=== PATIENT | female | born 1995 | race Caucasian/White ===

== ENCOUNTER → 2020-01-18 | Outpatient (CLI) | payer SELFPAY ==
[2020-01-18 13:24] LABS: Mucous, Urine 0 SEEN /hpf (<or=2+); Red Blood Cells-Urine 0 SEEN /hpf (0-5); White Blood Cells 0 SEEN /hpf (0-5)
[2020-01-18 13:53] LABS: Color, Urine Yellow (Yellow); Glucose, Dipstick Normal (Normal); Ketone-Dipstick Negative (Negative); Leukocyte Esterase-Dipstick Negative /ul (Negative); Nitrite-Dipstick Negative (Negative); Occult Blood-Urine Negative /ul (Negative); Protein-Dipstick Negative (Negative); Urine Bilirubin Dipstick Negative (Negative); Urine Clarity Clear (Clear); Urine Urobilinogen Normal (Normal); Urine pH 6.5 (5.0 - 8.0)
[2020-01-18 13:58] LABS: Bacteria RARE /hpf (None Seen); Squamous Epithelial Cells - UA 0-5 SEEN /hpf (5-10)
[2020-01-20 16:08] LABS: Age Gdln ACOG Testing 21-29 (.)
[2020-01-20 16:30] LABS: HPV Reflexed? NOT INDICATED
[2020-01-20 20:07] LABS: Chlamydia By Nucleic Acid AMP Negative (Negative)
[2020-01-20 20:35] LABS: Gonococcus By Nucleic Acid AMP Negative (Negative)
== END | disposition home or self-care (01) ==
LOC: LABSPEC 13:19
PROVIDERS: Visit Provider Obstetrics & Gynecology
DX: Z34.81 Encounter for supervision of other normal pregnancy, first trimester (principal); Z11.3 Encounter for screening for infections with a predominantly sexual mode of transmission; Z12.4 Encounter for screening for malignant neoplasm of cervix
CPT/HCPCS: 81001; 87491; 87591; 88175; G0145

== ENCOUNTER → 2020-02-16 10:57 | Outpatient (CLI) | payer SELFPAY ==
[2020-02-16 13:45] LABS: Absolute Lymphocyte Count 1.59 X10^3/uL (0.83-4.51); Absolute Neutrophil Count 8.5 X10^3/uL (2.0-7.7); Basophil# 0.03 X10^3/uL; Basophil% 0.3 % (0-1); Eosinophil# 0.08 X10^3/uL; Eosinophils% 0.7 % (0-5); Hematocrit 39.1 % (37-47); Hemoglobin 12.9 g/dL (12.0-15.0); Lymphocyte # 1.59 X10^3/ul (4.0); Lymphocyte % 14.5 % (19-41); Mean Corpuscular Hgb 28.7 pg (27.0-32.0); Mean Corpuscular Volume 86.9 fL (81-99); Mean Platelet Vol. 11.1 fl (6.2-12.0); Monocyte# 0.65 X10^3/uL; Monocyte% 5.9 % (0-10); NRBC Flagged by Analyzer 0 % (0-5); Neutrophil # 8.52 X10^3/uL (2.7-7.7); Platelet Count 209 K/mm3 (150-450); RBC Distribution Width CV 12.1 % (11.6-14.6); RBC Distribution Width SD 38.7 fl (35.1-43.9); White Blood Count 10.9 K/mm3 (4.4-11.0)
[2020-02-16 13:49] LABS: Color, Urine Straw (Yellow); Glucose, Dipstick Normal (Normal); Ketone-Dipstick Negative (Negative); Leukocyte Esterase-Dipstick Negative /ul (Negative); Nitrite-Dipstick Negative (Negative); Occult Blood-Urine Negative /ul (Negative); Protein-Dipstick Negative (Negative); Specific Gravity, Urine 1.005 (1.002-1.030); Urine Bilirubin Dipstick Negative (Negative); Urine Clarity Clear (Clear); Urine Urobilinogen Normal (Normal)
[2020-02-16 14:01] LABS: Amphetamine Urine VISTA NEGATIVE (<1000 ng/mL); Barbiturate Urine VISTA NEGATIVE (< 200 ng/mL); Benzodiazepine Urine VISTA NEGATIVE (< 200 ng/mL); Cocaine Urine VISTA NEGATIVE (< 300 ng/mL); Ecstacy Urine VISTA NEGATIVE (< 500 ng/mL); Methadone Urine VISTA NEGATIVE (< 300 ng/mL); PCP Urine VISTA NEGATIVE (< 25 ng/mL); THC Urine VISTA NEGATIVE (< 50 ng/mL); Vista UDS pH Range 6
[2020-02-16 14:40] LABS: HIV - WCH Non-Reactive (Nonreactive); Hepatitis B Surface Antigen Non-Reactive (Nonreactive); Hepatitis C Antibody Non-Reactive (Nonreactive); Rubella IgG Reactive (Nonreactive)
[2020-02-23 01:20] LABS: Prenatal RPR NONREACTIVE (NONREACTIVE)
== END ==
PROVIDERS: Visit Provider Student in an Organized Health Care Education/Training Program
DX: Z34.82 Encounter for supervision of other normal pregnancy, second trimester (principal)
CPT/HCPCS: 36415; 80307; 81002; 85025; 86703; 86762; 86803; 87086; 87340

== ENCOUNTER → 2020-05-08 10:19 | Outpatient (CLI) | payer SELFPAY ==
[2020-05-08 11:07] LABS: Hemoglobin 12.3 g/dL (12.0-15.0); Mean Corp Hgb Conc 33.2 g/dL (32-36); Mean Corpuscular Hgb 29.6 pg (27.0-32.0); Mean Corpuscular Volume 89.2 fL (81-99); Mean Platelet Vol. 10.6 fl (6.2-12.0); Platelet Count 188 K/mm3 (150-450); RBC Distribution Width SD 42.4 fl (35.1-43.9); Red Blood Count 4.15 M/mm3 (4.2-5.4); White Blood Count 9.8 K/mm3 (4.4-11.0)
[2020-05-08 11:23] LABS: Glucose Challenge Gest 1H 50g 118 mg/dL (70-140)
== END ==
PROVIDERS: Visit Provider Student in an Organized Health Care Education/Training Program
DX: Z34.82 Encounter for supervision of other normal pregnancy, second trimester (principal)
CPT/HCPCS: 36415; 82950; 85027

== ENCOUNTER → 2020-07-25 11:24 | Outpatient (CLI) | payer SELFPAY | PROVIDERS: Visit Provider Student in an Organized Health Care Education/Training Program | DX: Z36.85 Encounter for antenatal screening for Streptococcus B (principal) | CPT/HCPCS: 87081 ==

== ENCOUNTER → 2020-08-21 | Outpatient (CLI) | payer SELFPAY | END | disposition home or self-care (01) | LOC: LABSPEC 15:36 | PROVIDERS: Visit Provider Student in an Organized Health Care Education/Training Program | DX: Z34.83 Encounter for supervision of other normal pregnancy, third trimester (principal); Z36.85 Encounter for antenatal screening for Streptococcus B | CPT/HCPCS: 87081 ==

== ENCOUNTER 2020-08-29 07:00 | Inpatient (IN) | payer SELFPAY, OTHER ==
[2020-08-29] VITALS (47 sets, daily range): BP systolic 106–143; BP diastolic 55–74; PULSE 58–98; TEMP 36–37.4; O2SAT 96–100; BMI 30.8
[2020-08-29] MEDS: Lactated Ringers 1,000 ML 50 ML IV (07:30)
[2020-08-29 08:06] LABS: Absolute Lymphocyte Count 1.87 X10^3/uL (0.83-4.51); Absolute Neutrophil Count 6.1 X10^3/uL (2.0-7.7); Basophil# 0.03 X10^3/uL; Basophil% 0.3 % (0-1); Eosinophil# 0.06 X10^3/uL; Eosinophils% 0.7 % (0-5); Hematocrit 37.1 % (37-47); Hemoglobin 12.7 g/dL (12.0-15.0); Lymphocyte # 1.87 X10^3/ul (0.83-4.51); Mean Corp Hgb Conc 34.2 g/dL (32-36); Mean Corpuscular Hgb 30.2 pg (27.0-32.0); Mean Corpuscular Volume 88.3 fL (81-99); Mean Platelet Vol. 11.9 fl (6.2-12.0); Monocyte# 0.77 X10^3/uL; Monocyte% 8.7 % (0-10); NRBC Flagged by Analyzer 0 % (0-5); Neutrophil # 6.11 X10^3/uL (2.7-7.7); Neutrophil % 68.7 % (47-70); Platelet Count 145 K/mm3 (150-450); RBC Distribution Width CV 13.2 % (11.6-14.6); RBC Distribution Width SD 42.1 fl (35.1-43.9); White Blood Count 8.9 K/mm3 (4.4-11.0)
[2020-08-29] MEDS: miSOPROStol 25 MCG TABLET VAGINAL (08:19)
--- NOTE | 2020-08-29 09:10 | HP.PCM.OB_ITS ---
HPI - General General Date of Admission: 08/29/20 HPI Narrative ANTHONY YOO, is a 25 F 1 who presents for scheduled induction of labor. Maternal Data Information VERA Calculator Estimated Delivery Date Method Current WG Current Estimate 08/20/20 Manual 41w 2d Final VERA: 08/20/20 Final VERA Source: US <20 weeks Gestational age: 41 2/7 PFSH no medical history Home Medications [place] 3-6-9 08/29/20 [History Last Taken 08/28/20 17:00] wikosblaf-xmtebzt-fjqqa acid 08/29/20 [History Last Taken 08/28/20 17:00] no.144-folic acid [] 1 tab PO DAILY 08/29/20 [History Last Taken 08/28/20 17:00 1 tablet] Allergy/AdvReac Type Severity Reaction Status Date / Time No Known Allergies Allergy Verified 08/29/20 07:43 no significant family history no surgical history Social History adopted: No household members: spouse housing: house service: No current occupational status: unemployed 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 current occupational exposures/hazards: No pets and animals: Yes (Dog) history of recent travel: No sexually active: Yes do you think of yourself as: straight/heterosexual current gender identity: female Smoking Status: Former smoker History 1 Elective abortions Hx Para 0 Spontaneous abortions Hx # Term Pregnancies Ectopic pregnancies Hx # Pregnancies Multiple births # of living children Visit Details Expected Delivery Route/Plan IOL, anticipate Plans Misoprostol NST FHR Rate Baby A Baseline: 135 Variability:: Moderate Accelerations:: 15 x 15 Decelerations:: None NST Reactive:: Yes FHR Category:: Category I Uterine Activity:: 04/22 Vital Signs Vital Signs Vital Signs: 08/29/20 08:10 08/29/20 08:12 08/29/20 08:13 Temperature 99.1 F Temperature Source Temporal Pulse Rate 80 82 Blood Pressure 110/70 BP Systolic 110 BP Diastolic 70 Pulse Ox 97 08/29/20 10:48 08/29/20 10:49 08/29/20 11:45 Temperature 96.8 F L 98.1 F Temperature Source Temporal Temporal Pulse Rate 64 71 Blood Pressure 118/68 120/74 BP Systolic 118 120 BP Diastolic 68 74 Pulse Ox 08/29/20 11:46 08/29/20 13:26 08/29/20 13:27 Temperature 97.9 F Temperature Source Pulse Rate 76 71 78 Blood Pressure 113/68 BP Systolic 113 BP Diastolic 68 Pulse Ox 99 97 08/29/20 14:51 08/29/20 14:52 08/29/20 15:32 Temperature 98.4 F Temperature Source Temporal Pulse Rate 76 64 Blood Pressure 118/72 BP Systolic 118 BP Diastolic 72 Pulse Ox 99 98 08/29/20 15:37 08/29/20 15:42 08/29/20 15:47 Temperature Temperature Source Pulse Rate 65 68 66 Blood Pressure BP Systolic BP Diastolic Pulse Ox 98 97 97 08/29/20 15:52 08/29/20 15:57 08/29/20 16:02 Temperature Temperature Source Pulse Rate 61 59 L 59 L Blood Pressure BP Systolic BP Diastolic Pulse Ox 97 97 97 08/29/20 16:05 08/29/20 16:07 08/29/20 16:12 Temperature Temperature Source Pulse Rate 62 59 L 63 Blood Pressure 110/64 BP Systolic 110 BP Diastolic 64 Pulse Ox 98 98 08/29/20 16:17 08/29/20 16:22 08/29/20 16:27 Temperature Temperature Source Pulse Rate 62 58 L 59 L Blood Pressure BP Systolic BP Diastolic Pulse Ox 98 98 98 08/29/20 16:32 08/29/20 16:37 08/29/20 16:42 Temperature Temperature Source Pulse Rate 60 60 63 Blood Pressure BP Systolic BP Diastolic Pulse Ox 99 99 99 08/29/20 16:52 08/29/20 16:57 08/29/20 17:02 Temperature Temperature Source Pulse Rate 86 69 78 Blood Pressure BP Systolic BP Diastolic Pulse Ox 100 100 100 08/29/20 17:08 08/29/20 17:13 08/29/20 17:18 Temperature Temperature Source Pulse Rate 82 76 66 Blood Pressure BP Systolic BP Diastolic Pulse Ox 100 99 100 08/29/20 17:23 08/29/20 17:28 08/29/20 17:33 Temperature Temperature Source Pulse Rate 66 72 76 Blood Pressure BP Systolic BP Diastolic Pulse Ox 100 100 100 08/29/20 17:38 08/29/20 18:06 08/29/20 18:07 Temperature 98.6 F Temperature Source Temporal Pulse Rate 98 76 Blood Pressure 122/70 H BP Systolic 122 BP Diastolic 70 Pulse Ox 100 98 08/29/20 19:23 08/29/20 19:24 08/29/20 20:28 Temperature 99.3 F H 99.1 F Temperature Source Temporal Temporal Pulse Rate 67 82 Blood Pressure 120/70 111/68 BP Systolic 120 111 BP Diastolic 70 68 Pulse Ox 96 Physical Exam Const alert, oriented x3 and no apparent distress HEENT normocephalic Resp normal respiratory effort and normal air movement Cardio regular rate, regular rhythm, S1 normal heart sound and S2 normal heart sound GI soft to palpation, non-tender and non-distended Inspection: gravid Manual OB Exam: deferred Extremity no calf tenderness and no pedal edema Labs Labs Labs: Blood Type A POSITIVE Antibody Screen NEGATIVE Hct 37.1 % (37-47) Hgb 12.7 g/dL (12.0-15.0) Rubella IgG Antibody Reactive (Nonreactive) Hep Bs Antigen Non-Reactive (Nonreactive) Neisseria gonorrhoeae DNA (RITA) Negative (Negative) HIV 1&2 Antibody Non-Reactive (Nonreactive) Glucose 1 Hr 50 gm 118 mg/dL (70-140) Assessment & Plan (1) 41 weeks gestation of : PLAN: Misoprostol IOL
[2020-08-29] MEDS: Oxytocin 30 units/NS 500 ml 30 UNITS/500 ML IV.SOLN IV (12:22)
--- NOTE | 2020-08-29 13:07 | PN.OBGYN_ITS ---
Subjective Subjective Contractions are mild to moderate. Objective Data Objective Data Vital Signs: Vital Signs Temp Pulse BP Pulse Ox 98.1 F 76 120/74 99 08/29/20 11:45 08/29/20 11:46 08/29/20 11:45 08/29/20 11:46 Weight: 84 kg Body Mass Index (BMI) 30.8 Intake & Output: Intake and Output for Last 24 Hours 08/27/20 08/28/20 08/29/20 23:59 23:59 23:59 Intake Total 1.23 / 1.23 Balance 1.23 / 1.23 Lab / Micro Data Result Diagrams: 08/29/20 07:30 Labs: Laboratory Results - last 24 hr 08/29/20 08/29/20 07:30 07:30 WBC 8.9 RBC 4.20 Hgb 12.7 Hct 37.1 MCV 88.3 MCH 30.2 MCHC 34.2 RDW Std Deviation 42.1 RDW Coeff of Matthew 13.2 Plt Count 145 L MPV 11.9 Immature Gran % (Auto) 0.600 Neut % (Auto) 68.7 Lymph % (Auto) 21.0 [place] % (Auto) 8.7 Eos % (Auto) 0.7 Baso % (Auto) 0.3 Absolute Neuts (auto) 6.1 Absolute Lymphs (auto) 1.87 Nucleated RBC % 0 Blood Type A POSITIVE Antibody Screen NEGATIVE Micro: Microbiology 08/29/20 08:15 Interface Orders SARS-CoV-2 Antigen (Rapid) - Final Physical Exam Const alert, oriented x3 and no apparent distress Manual OB Exam: dilated 1, effaced 50, station -3 and other moderate and m idposition NST FHR Rate Baby A Baseline: 135 Variability:: Moderate Accelerations:: 15 x 15 Decelerations:: None NST Reactive:: Yes FHR Category:: Category I Uterine Activity:: 3-4/10 min Assessment & Plan (1) 41 weeks gestation of : PLAN: Continue pitocin as tolerated by mother and fetus.
[2020-08-29] MEDS: 0.9% Normal Saline Single 100 ML IV.SOLN. INTRA-UTER (19:17)
[2020-08-30] VITALS (74 sets, daily range): BP systolic 81–135; BP diastolic 45–88; PULSE 55–102; RESP 16–18; TEMP 36.5–37.7; O2SAT 95–100
[2020-08-30] MEDS: 0.9% Saline Lock 10 ML Syringe IV ×2 (00:43→20:06)
[2020-08-30] MEDS: Lactated Ringers 1,000 ML 200 ML IV ×3 (04:17→15:21)
[2020-08-30] MEDS: Ondansetron 4 MG/2 ML Vial IV (07:30)
[2020-08-30] MEDS: Lactated Ringers 500 ML 999 ML IV ×2 (11:20→12:35)
[2020-08-30] MEDS: fentaNYL-bupivacaine (epidural) 100 ML BAG EPIDURAL ×2 (11:58→16:04)
--- NOTE | 2020-08-30 17:33 | PCM.PN.OB ---
Subjective Subjective 41+ week intrauterine gestation patient has progressed to 5 cm/90/0 station. She has remained at this dilation and station for approximately 12 hours despite adequate contractions noted with an intrauterine pressure catheter monitor in place. Pitocin as high as 20 mIU per minute. Comfortable with epidural. She was ruptured approximately 1130 last evening and at that time was 4 to 5 cm. Given arrest of descent and arrest of dilation will proceed with primary section after discussion with the patient and her . They have also been counseled regarding the risk and indications of this procedure including the possibility of bleeding, infection, and injury to surrounding structures such as bowel bladder. All questions were answered. No fever and heart tones reassuring. Objective Data Objective Data Vital Signs: Vital Signs Temp Pulse BP Pulse Ox 99.7 F H 80 105/61 100 08/30/20 17:19 08/30/20 17:18 08/30/20 17:16 08/30/20 17:18 Weight: 185 lb 3.013 oz Body Mass Index (BMI) 30.8 Intake & Output: Intake and Output for Last 24 Hours 08/28/20 08/29/20 08/30/20 23:59 23:59 23:59 Intake Total 2710.17 / 2710.17 3436.94 / 3436.94 Output Total 2900 / 2900 1974 / 1974 Balance -189.83 / -189.83 1461.94 / 1461.94 Lab / Micro Data Result Diagrams: 08/29/20 07:30 Micro: Microbiology 08/29/20 08:15 Interface Orders SARS-CoV-2 Antigen (Rapid) - Final
--- NOTE | 2020-08-30 17:39 | EX.PCM.OBRPT ---
Maternal Data Information VERA Calculator Estimated Delivery Date Method Current WG Current Estimate 08/20/20 Manual 41w 3d Final VERA: 08/20/20 Gestational age: 41 weeks 3 days Details Operative Information Date of Procedure: 08/30/20 Pre-Operative Diagnosis: Postdate Intrauterine , Failure to Progress Post-Operative Diagnosis: Postdate Intrauterine , Failure to Progress Indications for : Failure to Progress and Arrrest of Descent Classification: FELIPE Procedure Type: low transverse unit assembler #1: Carson Garcia Type of Anesthesia: Epidural Anesthesiologist: Chay Zhang Antibiotic Given: Ancef 2 grams IV x1 Drain: Uriostegui to straight drain Estimated Blood Loss: 500 cc Fluids Replaced: Crystalloid Findings Description of Procedure: Surgeon: Reid Kwong MD, FACOG Indication: This is a 25-year-old who presented at 41+ weeks gestation for postdate induction. She progressed to 5 cm but despite rupture of membranes, adequate contractions noted by an intrauterine pressure catheter, and Pitocin up to 20mIU/min, she failed to progress past 5 cm for more than 12 hours. care has otherwise been uneventful. The patient has been counseled regarding the risk and indications of this procedure including the possibility of bleeding infection and injury to surrounding structures such as bowel bladder. All questions were answered. Procedure: Patient was taken to the operating room where after epidural catheter was redosed, the patient was prepped and draped in usual sterile fashion; a Uriostegui catheter had been previously placed. The abdomen was entered through a Pfannenstiel incision and peritoneum was entered bluntly. After developing a bladder flap on the lower uterine segment a low transverse incision was made on the uterus and head was easily delivered onto the operative field the nose mouth and oropharynx were bulb suctioned. Subsequently a viable male was born with Apgars of 8/9. The was noted to cry move all extremities vigorously on the operative field. The umbilical cord was doubly clamped and ligated and handed to the nursery personnel who were present for the delivery. Placenta was delivered and noted to be 3 vessels and normal. Uterus was exteriorized and remaining placental tissue was removed. The uterus was then closed in 2 layers first with running locked 0 Vicryl suture followed by a second imbricating layer with 0 Vicryl suture. 0 Vicryl suture was then used in a horizontal mattress interrupted fashion to affect final hemostasis of the uterine incision line. Normal fallopian tubes and ovaries were visualized and the uterus was returned to the pelvis. Hemostasis was noted and rectus abdominis muscles were reapproximated in the midline with interrupted Number 0 Vicryl suture in a horizontal mattress fashion. Fascia was closed with running Number 1 PDS Strata fix suture. Subcutaneous tissue was irrigated with copious amounts of saline solution and then closed with running 3-0 Vicryl suture. Skin was closed with 4-0 monocryl suture in a running subcuticular fashion. Steri strips and a Mepilex dressing were placed across the incision. The patient tolerated the procedure well and was taken to the recovery room in satisfactory condition. Sponge, needle, and instrument counts were all reportedly correct. EBL was less than 500 cc. Ancef 2 gms IV was given prior to the procedure. Amniotic Membrane Rupture Type: Artificial Amniotic Fluid Description: Clear Placenta Disposition: [facility] Cord Vessel Description: 3 Vessels Cord Entanglement: None Infant A Gender: Male (1 minute): 8 (5 minute): 9 Complications Risks of Surgery Discussed w/Patient: Bleeding, Infection and Injury to surrounding structure(s) including bowel and bladder Complications: None
--- NOTE | 2020-08-30 17:48 | PCM.DC ---
Discharge Instructions Diet Discharge Diet: No restrictions Activity Discharge Activity: May Not Drive (for 2 weeks), May not drive while taking narcotic pain medications., May Shower and May Take a Tub Bath (in 7 days) May resume sexual activity in: 4-6 weeks Lifting Restrictions: 20 pounds Dressing / Incision Call your doctor if your incision/area has: Continuous Slow Oozing, Sudden Increased Bleeding, Increased Pain/ Swelling, Increased Redness and Foul Smelling Discharge Call your doctor if you observe: Fever of 101 or Higher, Inability to urinate, Inability to have a bowel movement and Using more than one pad per hour Remove Dressing in: 1 week Additional Dressing/Incision Instructions:: Leave underlying steri-strips in place until your post op visit in about 2 weeks Follow Up Care Please Follow Up With: Delmy Ham DO When: Call [phone] for appointment to be seen in 2 weeks. Test Results: Test results from this visit will be discussed in further detail at your follow-up appointment, if applicable. Discharge Plan Admission Admit Date/Time: 08/29/20 07:00 Primary Reason for Your Visit: Delivery Attending Provider: Delmy Ham Primary Care Provider: Care Physician,Irma Primary Discharge Orders/Prescriptions Prescriptions: New oxycodone 5 mg capsule 5 mg PO Q6H PRN (Reason: pain) 7 Days Qty: 14 RF: 0 docusate sodium 100 mg tablet 100 mg PO BID PRN (Reason: constipation) Qty: 60 RF: 1 Continued 400 mcg Tablet,Chewable 1 tab PO DAILY RF: 0 kgxciikrn-zcrrmkd-kpwgv acid RF: 0 [place] 3-6-9 RF: 0 Referrals / Follow Up: Care Physician,No Primary [Primary Care Provider] - Disposition Disposition (needs filled in before D/C Order can be placed): Home, self care
[2020-08-30] MEDS: Sodium Citrate/Citric Acid 30 ML UDC PO (17:56)
[2020-08-30] MEDS: Cefazolin 2 GM in 0.9% Normal Saline 100 ML IV (18:06)
--- NOTE | 2020-08-30 18:30 | CPS ---
Rn was in room and took IS to do with the patient.
[2020-08-30] MEDS: Oxytocin 30 units/NS 500 ml 30 UNITS/500 ML IV.SOLN 167 UNITS IV (19:50)
[2020-08-30] MEDS: Ketorolac 30 MG/ML Syringe IV (20:06)
[2020-08-30] MEDS: Acetaminophen 500 MG Tablet 1000 MG PO (20:17)
--- NOTE | 2020-08-30 21:30 | NURSING ---
Epidural catheter removed, blue tip intact. Pt tolerated well.
[2020-08-30] MEDS: Lactated Ringers 1,000 ML 100 ML IV (22:41)
[2020-08-31] VITALS (7 sets, daily range): BP systolic 94–107; BP diastolic 42–68; PULSE 62–88; RESP 16–18; TEMP 36.2–36.7; O2SAT 95–98
[2020-08-31] MEDS: Acetaminophen 500 MG Tablet 1000 MG PO ×4 (01:49→20:14)
[2020-08-31] MEDS: Ketorolac 30 MG/ML Syringe IV ×3 (01:49→14:15)
[2020-08-31] MEDS: Cefazolin 1 GM/50 ML BAG IV ×2 (01:49→10:15)
[2020-08-31 05:47] LABS: Hematocrit 32.8 % (37-47); Hemoglobin 10.8 g/dL (12.0-15.0); Mean Corp Hgb Conc 32.9 g/dL (32-36); Mean Corpuscular Hgb 29.9 pg (27.0-32.0); Mean Corpuscular Volume 90.9 fL (81-99); Mean Platelet Vol. 11.5 fl (6.2-12.0); Platelet Count 134 K/mm3 (150-450); RBC Distribution Width CV 13.2 % (11.6-14.6); RBC Distribution Width SD 43.2 fl (35.1-43.9); Red Blood Count 3.61 M/mm3 (4.2-5.4); White Blood Count 18.1 K/mm3 (4.4-11.0)
[2020-08-31] MEDS: 0.9% Saline Lock 10 ML Syringe IV ×3 (08:22→14:16)
[2020-08-31] MEDS: Senna/Docusate Sodium 1 Tablet PO (08:22)
--- NOTE | 2020-08-31 09:22 | PCM.PN.OB ---
Subjective Subjective Patient without complaints. Tolerating diet well. Denies flatus. Pain well controlled. Objective Data Objective Data Vital Signs: Vital Signs Temp Pulse Resp BP Pulse Ox 97.7 F L 68 18 94/42 L 98 08/31/20 03:26 08/31/20 05:30 08/31/20 05:30 08/31/20 03:26 08/31/20 05:30 Oxygen Delivery Method Room Air Weight: 185 lb 3.013 oz Body Mass Index (BMI) 30.8 Intake & Output: Intake and Output for Last 24 Hours 08/29/20 08/30/20 08/31/20 23:59 23:59 23:59 Intake Total 2710.17 / 2710.17 4720.11 / 4720.11 1031.67 / 1031.67 Output Total 2900 / 2900 5275 / 5275 900 / 900 Balance -189.83 / -189.83 -554.89 / -554.89 131.67 / 131.67 Lab / Micro Data Result Diagrams: 08/31/20 05:30 Labs: Laboratory Results - last 24 hr 08/31/20 05:30 WBC 18.1 H RBC 3.61 L Hgb 10.8 L Hct 32.8 L MCV 90.9 MCH 29.9 MCHC 32.9 RDW Std Deviation 43.2 RDW Coeff of [place] 13.2 Plt Count 134 L MPV 11.5 Micro: Microbiology 08/29/20 08:15 Interface Orders SARS-CoV-2 Antigen (Rapid) - Final Assessment & Plan (1) 41 weeks gestation of : PLAN: Doing well postoperative day #1 status post primary section for failure to progress. Continuing present care.
[2020-08-31] MEDS: Ibuprofen 600 MG Tablet PO (20:13)
[2020-09-01 02:00] VITALS: BP 109/72; PULSE 71; RESP 16; TEMP 36.5
[2020-09-01] MEDS: Ibuprofen 600 MG Tablet PO ×2 (02:47→10:19)
[2020-09-01] MEDS: Acetaminophen 500 MG Tablet 1000 MG PO ×2 (02:47→09:13)
--- NOTE | 2020-09-01 04:13 | PCM.DC.SUM ---
Providers Date of Admission: 08/29/20 Primary Care Physician: No Primary Care Phys Reason For Visit: C SECTION Diagnosis Discharge Diagnosis (1) 41 weeks gestation of : Status: Acute Code(s): Z3A.41 - 41 weeks gestation of Medications at Discharge Home Medications [place] 3-6-9 08/29/20 1 tab PO DAILY 08/29/20 rdvpqljti-ctqryxh-loere acid 08/29/20 docusate sodium 100 mg PO BID PRN #60 tab 08/30/20 oxycodone 5 mg PO Q6H PRN 7 Days #14 cap 08/30/20 Hospital Course Operations section Procedures None Summary of Care Provided Hospital Course: 25-year-old 1 para 0 admitted at 41-1/7 weeks gestational age for scheduled induction of labor. She reached 5cm dilation but did not progress further despite more than 12 hours on pitocin following rupture of membranes . She underwent a primary low transverse section on hospital day #2 that was uncomplicated. Her postop course was unremarkable. She was discharged to home on post op day #2. Physical Exam Narrative Pain is controlled. OOB, ambulating, voiding w/o difficulty, and passing flatus. She is . Denies heavy lochia. Const alert, oriented x3 and no apparent distress Resp normal respiratory effort, normal air movement and clear to auscultation bilaterally Cardio regular rate, regular rhythm, S1 normal heart sound and S2 normal heart sound GI normal to inspection, nondistended, normoactive bowel sounds, soft to palpation, non-tender and non-distended Manual OB Exam: other lochia scant Uterus Palpation: uterus fundus firm Extremity no calf tenderness ABG / Lab / Microbiology Data Result Diagrams: 08/31/20 05:30 Laboratory: Laboratory Results - last 24 hr 08/31/20 05:30 WBC 18.1 H RBC 3.61 L Hgb 10.8 L Hct 32.8 L MCV 90.9 MCH 29.9 MCHC 32.9 RDW Std Deviation 43.2 RDW Coeff of Matthew 13.2 Plt Count 134 L MPV 11.5 Microbiology: Microbiology 08/29/20 08:15 Interface Orders SARS-CoV-2 Antigen (Rapid) - Final D/C Instructions Discharge Diet: No restrictions Discharge Activity: May Not Drive (for 2 weeks), May not drive while taking narcotic pain medications., May Shower and May Take a Tub Bath (in 7 days) May resume sexual activity in: 4-6 weeks Call your doctor if your incision/area has: Continuous Slow Oozing, Sudden Increased Bleeding, Increased Pain/ Swelling, Increased Redness and Foul Smelling Discharge Call your doctor if you observe: Fever of 101 or Higher, Inability to urinate, Inability to have a bowel movement and Using more than one pad per hour Additional Dressing/Incision Instructions: Leave underlying steri-strips in place until your post op visit in about 2 weeks Please Follow Up With: Delmy Ham DO When: Call [phone] for appointment to be seen in 2 weeks. Meaningful Use Info Meaningful Use Diagnoses (Choose all that apply): None applicable Discharge Plan Admission Admit Date/Time: 08/29/20 07:00 Primary Reason for Your Visit: Delivery Attending Provider: Reid Kwong Primary Care Provider: Care Physician,No Primary Instructions Patient Instructions: After a Discharge Orders/Prescriptions Prescriptions: New oxycodone 5 mg capsule 5 mg PO Q6H PRN (Reason: pain) 7 Days Qty: 14 RF: 0 docusate sodium 100 mg tablet 100 mg PO BID PRN (Reason: constipation) Qty: 60 RF: 1 Continued 400 mcg Tablet,Chewable 1 tab PO DAILY RF: 0 ywekfpkdy-isueeco-gvxcw acid RF: 0 [place] 3-6-9 RF: 0 Disposition Disposition (needs filled in before D/C Order can be placed): Home, self care
[2020-09-01] MEDS: Senna/Docusate Sodium 1 Tablet PO (09:15)
[2020-09-01 09:52] VITALS: BP 104/61; PULSE 68; RESP 18; TEMP 36.5
== END 2020-09-01 11:30 | disposition home or self-care (01) | DRG 788 ==
PROVIDERS: Student in an Organized Health Care Education/Training Program; Admitting Provider Obstetrics & Gynecology; Visit Provider Obstetrics & Gynecology
DX: O62.2 Other uterine inertia (principal); O48.0 Post-term pregnancy; Z37.0 Single live birth; Z3A.41 41 weeks gestation of pregnancy; Z87.891 Personal history of nicotine dependence
CPT/HCPCS: 59025; 59050; 85025; 85027; 86850; 86900; 86901; 87426; 99218; J7120; A4216; G0378; J2405

== ENCOUNTER → 2021-09-10 | Outpatient (CLI) | payer OTHER, SELFPAY ==
[2021-09-10 13:43] LABS: Progesterone Level 0.33 ng/mL (See Comment)
[2021-09-10 13:52] LABS: Estradiol 54.4 pg/mL; Follicle Stimulating Hormone 7.1 mIU/mL; Luteinizing Hormone 7.8 mIU/mL; Prolactin 6.1 ng/mL; T4 Free Direct 0.97 ng/dL (0.76-1.46); Thyroid Stim Hormone (TSH) 2.24 uIU/mL (0.358-3.74)
[2021-09-14 07:35] LABS: Testosterone Free 1.8 pg/mL (0.0-4.2)
== END | disposition home or self-care (01) ==
PROVIDERS: Visit Provider Student in an Organized Health Care Education/Training Program
DX: N92.6 Irregular menstruation, unspecified (principal)
CPT/HCPCS: 36415; 82670; 83001; 83002; 84144; 84146; 84402; 84439; 84443

== ENCOUNTER → 2022-02-19 | Outpatient (CLI) | payer OTHER, SELFPAY ==
[2022-02-19 11:56] LABS: hCG Titer Quant., Serum 20 mIU/mL (1-3)
== END | disposition home or self-care (01) ==
LOC: WOBLAB 10:39
PROVIDERS: Visit Provider Obstetrics & Gynecology
DX: O03.9 Complete or unspecified spontaneous abortion without complication (principal)
CPT/HCPCS: 36415; 84702

== ENCOUNTER 2022-02-28 10:26 | Outpatient (CLI) | payer OTHER, SELFPAY ==
[2022-02-28 11:40] LABS: hCG Titer Quant., Serum 8 mIU/mL (1-3)
== END 2022-02-28 23:59 | disposition home or self-care (01) ==
LOC: WOBLAB 10:27
PROVIDERS: Visit Provider Obstetrics & Gynecology
DX: O03.9 Complete or unspecified spontaneous abortion without complication (principal)
CPT/HCPCS: 36415; 84702

== ENCOUNTER → 2022-07-01 | Outpatient (CLI) | payer OTHER, SELFPAY ==
[2022-07-01 15:27] LABS: Absolute Lymphocyte Count 1.32 X10^3/uL (0.83-4.51); Absolute Neutrophil Count 4.4 X10^3/uL (2.0-7.7); Basophil# 0.02 X10^3/uL; Basophil% 0.3 % (0-1); Eosinophil# 0.11 X10^3/uL; Eosinophils% 1.7 % (0-5); Hematocrit 38.4 % (37-47); Hemoglobin 12.8 g/dL (12.0-15.0); Lymphocyte # 1.32 X10^3/ul (0.83-4.51); Lymphocyte % 20.8 % (19-41); Mean Corp Hgb Conc 33.3 g/dL (32-36); Mean Corpuscular Hgb 29.6 pg (27.0-32.0); Mean Corpuscular Volume 88.7 fL (81-99); Mean Platelet Vol. 10.6 fl (6.2-12.0); Monocyte# 0.52 X10^3/uL; Monocyte% 8.2 % (0-10); NRBC Flagged by Analyzer 0 % (0-5); Neutrophil # 4.35 X10^3/uL (2.7-7.7); Neutrophil % 68.5 % (47-70); Platelet Count 219 K/mm3 (150-450); RBC Distribution Width CV 12.4 % (11.6-14.6); RBC Distribution Width SD 40.6 fl (35.1-43.9); Red Blood Count 4.33 M/mm3 (4.2-5.4); White Blood Count 6.4 K/mm3 (4.4-11.0)
[2022-07-01 15:31] LABS: HIV - WCH Non-Reactive (Nonreactive); Hepatitis B Surface Antigen Non-Reactive (Nonreactive); Hepatitis C Antibody Non-Reactive (Nonreactive); Rubella IgG Reactive (Nonreactive); Syphilis Antibodies Non-reactive
[2022-07-03 13:06] LABS: V-Zoster IgG (Immunity) < 135 index (Immune >165)
[2022-07-08 22:17] LABS: HPV Reflexed? NOT INDICATED
== END | disposition home or self-care (01) ==
LOC: WOBLAB 14:05
PROVIDERS: Visit Provider Student in an Organized Health Care Education/Training Program
DX: N91.2 Amenorrhea, unspecified (principal); Z12.4 Encounter for screening for malignant neoplasm of cervix
CPT/HCPCS: 36415; 85025; 86703; 86762; 86780; 86787; 86803; 87086; 87088; 87340; 88175; G0145

== ENCOUNTER → 2022-09-24 | Outpatient (CLI) | payer OTHER, SELFPAY ==
[2022-09-24 10:21] LABS: Absolute Lymphocyte Count 1.46 X10^3/uL (0.83-4.51); Basophil# 0.03 X10^3/uL; Basophil% 0.4 % (0-1); Eosinophil# 0.13 X10^3/uL; Eosinophils% 1.6 % (0-5); Hematocrit 36.8 % (37-47); Hemoglobin 12.2 g/dL (12.0-15.0); Lymphocyte # 1.46 X10^3/ul (0.83-4.51); Lymphocyte % 17.8 % (19-41); Mean Corp Hgb Conc 33.2 g/dL (32-36); Mean Corpuscular Hgb 30.3 pg (27.0-32.0); Mean Corpuscular Volume 91.5 fL (81-99); Mean Platelet Vol. 10.5 fl (6.2-12.0); Monocyte# 0.51 X10^3/uL; Monocyte% 6.2 % (0-10); NRBC Flagged by Analyzer 0 % (0-5); Neutrophil # 5.96 X10^3/uL (2.7-7.7); Neutrophil % 72.7 % (47-70); Platelet Count 171 K/mm3 (150-450); RBC Distribution Width CV 13.1 % (11.6-14.6); RBC Distribution Width SD 43.7 fl (35.1-43.9); Red Blood Count 4.02 M/mm3 (4.2-5.4); White Blood Count 8.2 K/mm3 (4.4-11.0)
[2022-09-24 10:29] LABS: Glucose Challenge Gest 1H 50g 125 mg/dL (70-140)
[2022-09-24 10:59] LABS: Syphilis Antibodies Non-reactive
== END | disposition home or self-care (01) ==
PROVIDERS: Visit Provider Student in an Organized Health Care Education/Training Program
DX: Z34.82 Encounter for supervision of other normal pregnancy, second trimester (principal)
CPT/HCPCS: 36415; 82950; 85025; 86780

== ENCOUNTER → 2022-12-10 | Outpatient (CLI) | payer OTHER, SELFPAY ==
[2022-12-10 09:49] LABS: Hematocrit 38.8 % (37-47); Hemoglobin 13.4 g/dL (12.0-15.0); Mean Corp Hgb Conc 34.5 g/dL (32-36); Mean Corpuscular Hgb 30.9 pg (27.0-32.0); Mean Corpuscular Volume 89.6 fL (81-99); Mean Platelet Vol. 10.4 fl (6.2-12.0); Platelet Count 166 K/mm3 (150-450); RBC Distribution Width SD 42.5 fl (35.1-43.9); Red Blood Count 4.33 M/mm3 (4.2-5.4); White Blood Count 10.1 K/mm3 (4.4-11.0)
== END | disposition home or self-care (01) ==
LOC: WOBLAB 09:37
PROVIDERS: Visit Provider Student in an Organized Health Care Education/Training Program
DX: Z34.83 Encounter for supervision of other normal pregnancy, third trimester (principal)
CPT/HCPCS: 36415; 85027; 87081

== ENCOUNTER 2022-12-29 12:35 | Inpatient (IN) | payer SELFPAY, OTHER ==
[2022-12-29] VITALS (17 sets, daily range): BP systolic 93–124; BP diastolic 53–76; PULSE 69–85; TEMP 36.1–36.8; O2SAT 96–98; BMI 29.7
[2022-12-29] MEDS: Lactated Ringers 1,000 ML 50 ML IV (13:35)
[2022-12-29 13:53] LABS: Absolute Lymphocyte Count 2.04 X10^3/uL (0.83-4.51); Basophil# 0.04 X10^3/uL; Basophil% 0.4 % (0-1); Eosinophil# 0.08 X10^3/uL; Eosinophils% 0.7 % (0-5); Hematocrit 38.5 % (37-47); Hemoglobin 12.8 g/dL (12.0-15.0); Lymphocyte # 2.04 X10^3/ul (0.83-4.51); Lymphocyte % 18.7 % (19-41); Mean Corp Hgb Conc 33.2 g/dL (32-36); Mean Corpuscular Volume 90.2 fL (81-99); Mean Platelet Vol. 11.7 fl (6.2-12.0); Monocyte# 0.69 X10^3/uL; Monocyte% 6.3 % (0-10); NRBC Flagged by Analyzer 0 % (0-5); Neutrophil # 8.02 X10^3/uL (2.7-7.7); Neutrophil % 73.4 % (47-70); Platelet Count 141 K/mm3 (150-450); RBC Distribution Width CV 12.9 % (11.6-14.6); RBC Distribution Width SD 42.1 fl (35.1-43.9); Red Blood Count 4.27 M/mm3 (4.2-5.4); White Blood Count 10.9 K/mm3 (4.4-11.0)
[2022-12-29] MEDS: Oxytocin 15 Units/NS 250ml 15 UNITS/250 ML IV.SOLN 2 UNITS IV (13:58)
[2022-12-29 14:32] LABS: Syphilis Antibodies Non-reactive
--- NOTE | 2022-12-29 17:04 | HP.PCM.OB_ITS ---
History and Physical Date of Admission: 12/29/22 HPI: 27-year-old G3, P1 at 39/0 weeks, VERA 01/05/2023 by LMP, admitted for induction of labor. Denies regular contractions, leaking of fluid, vaginal bleeding. Reports movement. Denies headache or vision changes, chest pain or shortness of breath, nausea or vomiting, diarrhea constipation, fevers or chills. 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 G2: First trimester SAB G3: Current Medical history: Denies Surgical history: section Social history: Denies tobacco, alcohol, drug use Allergies: No known drug allergies Medications: vitamin Family history: Noncontributory Physical exam: Blood pressure 103/54, heart rate 72, temp 98.2 ?F General: No acute distress HEENT ENT: Normal cephalic/atraumatic Cardiorespiratory: No increased effort Abdomen: Soft, nontender, gravid Extremities: Minimal edema Neurologic: No focal deficits Musculoskeletal: Moves all extremities equally Cervical exam: Fingertip per RN heart rate: 115/mod randal/+accel/no decel [place]: now q5 min Assessment/plan: 27-year-old G3, P1 at 39/0 weeks, VERA 01/05/2023 by LMP, admitted for elective induction of labor. complicated by prior section and varicella nonimmune status. ? Admit for induction of labor with Pitocin. ? GBS negative ? Growth AGA on 12/03/2022. ? Patient consented for induction of labor and trial of labor after section. Patient aware of her options for induction of labor, expectant management, scheduled repeat section. Patient desires induction of labor. Patient aware of less than 1% risk of uterine rupture. If uterine rupture were to occur this would be catastrophic with potential for or neurologic compromise, maternal hemorrhage and/or hysterectomy. Patient is aware and consents to trial of labor after section.
[2022-12-30] VITALS (73 sets, daily range): BP systolic 80–111; BP diastolic 53–69; PULSE 58–96; RESP 15–18; TEMP 36.1–36.9; O2SAT 95–99
--- NOTE | 2022-12-30 06:34 | PN.OBGYN_ITS ---
Subjective Subjective Patient rested overnight. Feeling contractions, not painful. Objective Data Objective Data Vital Signs: Vital Signs Temp Pulse BP Pulse Ox 97.8 F 84 104/67 96 12/30/22 02:47 12/30/22 06:21 12/30/22 06:21 12/30/22 06:18 Weight: 81.2 kg Body Mass Index (BMI) 29.7 Intake & Output: Intake and Output for Last 24 Hours 12/28/22 12/29/22 12/30/22 23:59 23:59 23:59 Intake Total 91.83 / 91.83 100.23 / 100.23 Balance 91.83 / 91.83 100.23 / 100.23 Lab / Micro Data Attestation: I reviewed the patient's lab results. 12/29/22 13:35 Labs: Laboratory Results - last 24 hr 12/29/22 13:35: WBC 10.9, RBC 4.27, Hgb 12.8, Hct 38.5, MCV 90.2, MCH 30.0, MCHC 33.2, RDW Std Deviation 42.1, RDW Coeff of Matthew 12.9, Plt Count 141 L, MPV 11.7, Immature Gran % (Auto) 0.500, Neut % (Auto) 73.4 H, Lymph % (Auto) 18.7 L, [place] % (Auto) 6.3, Eos % (Auto) 0.7, Baso % (Auto) 0.4, Absolute Neuts (auto) 8.0 H, Absolute Lymphs (auto) 2.04, Nucleated RBC % 0, Syphilis Total Ab Non-reactive, Blood Type A POSITIVE, Antibody Screen NEGATIVE Physical Exam Const alert, oriented x3 and no apparent distress GI Inspection: gravid Narrative: /-3 Extremity no pedal edema Neuro moves all extremities, no focal motor deficits and no sensory deficits noted NST FHR Rate Baby A Baseline: 125 Variability:: Moderate Accelerations:: 15 x 15 Decelerations:: None FHR Category:: Category I Uterine Activity:: q5 min Assessment & Plan (1) 39 weeks gestation of : PLAN: at 39/1 weeks, continued induction of labor at term. For trial of labor after section. Patient now 1 cm. Discussed options of management: Continued Pitocin, artificial rupture membranes, Uriostegui bulb placement, section. Patient and do not desire prolonged induction of labor, which they had decided prior to arrival for induction. Patient states she wanted to try laboring, however did not want several day induction like she had in her first delivery. Discussed that she has been induced for 16 hours at this time. Induction is still in early stages. However pitocin is at 20 mu/min. Unable to determine how many hours induction would be. Discussed risk, benefits, alternatives for section. Risks include but are not limited to: Risk of bleeding to the point transfusion, infection, injury to surrounding tissue including bowel/bladder potentially requiring prolonged Uriostegui catheter use, VTE, ICU admission. Patient aware. All questions answered. Patient and her are discussing options and plan.
[2022-12-30] MEDS: Lactated Ringers 1,000 ML 50 ML IV (06:43)
[2022-12-30] MEDS: 0.9% Saline Lock 10 ML Syringe IV ×2 (08:25→22:29)
[2022-12-30] MEDS: Acetaminophen 500 MG Tablet 1000 MG PO ×3 (08:25→18:36)
[2022-12-30] MEDS: Lactated Ringers 1,000 ML 999 ML IV (08:30)
[2022-12-30] MEDS: Sodium Citrate/Citric Acid 30 ML UDC PO (09:04)
[2022-12-30] MEDS: Cefazolin 2 GM in 0.9% Normal Saline (100mL Bag) 100 ML IV (09:29)
[2022-12-30] MEDS: Azithromycin 500 MG in Dextrose 5%-Water (250mL Bag) 250 ML 250 MG IV (09:52)
--- NOTE | 2022-12-30 10:21 | EX.PCM.OBRPT ---
Maternal Data Information Final VERA: 01/05/23 Final VERA Source: LMP Details Operative Information Date of Procedure: 12/30/22 Pre-Operative Diagnosis: [place] intrauterine at term, elective section Post-Operative Diagnosis: [place] intrauterine at term, elective section Indications for : Repeat Elective Indications Narrative: 27-year-old G3, P1 at 39/1 weeks, VERA 01/05/2023 by LMP, for repeat section. Patient was admitted for induction of labor at term, trial of labor after section. Patient was induced for approximately 16 hours, at which time patient elected for repeat section. All risk, benefits, alternatives were discussed with the patient. Risk include but are not limited to: Risk of bleeding to the point of transfusion, infection, injury to surrounding tissue including bowel/bladder potentially requiring prolonged Uriostegui catheter use, VTE, ICU admission. Patient aware and consented. Classification: Scheduled Procedure Type: low transverse can sterilizer #1: Carson Garcia Type of Anesthesia: Spinal Antibiotic Given: Ancef 2 grams IV x1 and Zithromax 500 mg/5 mL X1 Estimated Blood Loss: 700cc Fluids Replaced: 750cc Findings Description of Procedure: Patient taken to the operating room and spinal anesthesia placed. Patient placed in the supine position with a left lateral tilt. Prepped and draped in usual sterile fashion. Pfannenstiel skin incision made with scalpel and carried down through subcutaneous tissue. Fascia nicked on either side of the midline extended bluntly. Yessi clamps placed at the superior fascial edge which was tented up and underlying rectus muscles dissected off bluntly sharply at midline using Dewey scissors. Yessi clamps moved to inferior fascial edge which was tented up and underlying rectus muscles were dissected off in a similar fashion. Hemostats used to separate rectus muscle superiorly and peritoneum entered using Metzenbaum scissors and blunt dissection. Bladder blade placed. Low transverse uterine incision made with scalpel and extended bluntly. Amniotomy clear fluid. Hand placed into the uterine cavity and head elevated to the level of the hysterotomy. Bladder blade removed. Head delivered followed by body with the assistance of gentle fundal pressure. No nuchal cord. Cord clamped and cut. Baby to nurse. Spontaneous delivery of placenta. Uterus cleared of all clots. Hysterotomy closed with a running stitch followed by second vertical imbricating suture. Hemostatic. Peritoneum closed with a running stitch. Fascia closed with a running stitch. Subcutaneous tissue irrigated. Subcutaneous tissue reapproximated using interrupted suture. Skin closed with a running subcuticular stitch. At the end of the procedure all needle, lap, sponge counts were correct. UOP: 200cc clear urine A Gender: Male (1 minute): 9 (5 minute): 9 Delayed Cord Clamping: Yes Complications Complications: None
[2022-12-30] MEDS: Oxytocin 15 Units/NS 250ml 15 UNITS/250 ML IV.SOLN 83 UNITS IV (11:00)
[2022-12-30] MEDS: Ketorolac 30 MG/ML Syringe IV ×3 (11:21→22:30)
[2022-12-30] MEDS: Lactated Ringers 1,000 ML 100 ML IV (14:26)
[2022-12-30] MEDS: Enoxaparin 40 MG/0.4 ML Syringe SC (22:29)
[2022-12-31] VITALS: BP 93/57; PULSE 60; RESP 16; TEMP 36.4; O2SAT 98
[2022-12-31 00:01] VITALS: BP 91/57; PULSE 68
[2022-12-31] MEDS: Acetaminophen 500 MG Tablet 1000 MG PO ×2 (00:06→07:41)
[2022-12-31 04:56] VITALS: BP 94/51; PULSE 72; RESP 16; TEMP 36.8; O2SAT 98
[2022-12-31 04:58] VITALS: BP 94/51; PULSE 61
[2022-12-31] MEDS: Ketorolac 30 MG/ML Syringe IV (05:05)
[2022-12-31] MEDS: 0.9% Saline Lock 10 ML Syringe IV (05:05)
[2022-12-31 05:14] LABS: Hematocrit 33.7 % (37-47); Hemoglobin 11.6 g/dL (12.0-15.0); Mean Corp Hgb Conc 34.4 g/dL (32-36); Mean Corpuscular Hgb 31.2 pg (27.0-32.0); Mean Corpuscular Volume 90.6 fL (81-99); Mean Platelet Vol. 10.9 fl (6.2-12.0); Platelet Count 145 K/mm3 (150-450); RBC Distribution Width CV 13.2 % (11.6-14.6); RBC Distribution Width SD 43.2 fl (35.1-43.9); Red Blood Count 3.72 M/mm3 (4.2-5.4); White Blood Count 12.4 K/mm3 (4.4-11.0)
--- NOTE | 2022-12-31 07:06 | DS.PCM_ITS ---
Discharge Summary Date of Admission: 12/29/22 Date of Discharge: 12/31/22 Summary: Patient arrived on 12/29/2022 for induction of labor with desired [place]. During induction patient decided she wished for elective section. Elective repeat section performed on 12/30/2022. Routine postoperative recovery and discharged home on 12/31/2022 Meaningful Use Info Meaningful Use Diagnoses (Choose all that apply): None applicable Discharge Plan Admission Admit Date/Time: 12/29/22 12:35 Primary Reason for Your Visit: section Attending Provider: Delmy Ham Primary Care Provider: Irma Harmon Primary Instructions Additional Instructions / Restrictions: Regular diet. Okay to shower. No tub baths for 2 weeks. No intercourse for 6 to 8 weeks. No lifting over 25 pounds for 2 to 3 weeks. Call if fevers, chills, chest pain, shortness of breath. Follow-up 2 weeks postoperatively Discharge Orders/Prescriptions Prescriptions: New oxycodone 5 mg tablet 5 mg PO Q6H PRN (Reason: pain (scale score 7-10)) 4 Days Qty: 14 0RF Continued 400 mcg Tablet,Chewable 1 tab PO DAILY onggrpazj-sigrwle-khcqh acid [place] 3-6-9 Referrals / Follow Up: Care Physician,Irma Primary [Primary Care Provider] - Disposition Disposition (needs filled in before D/C Order can be placed): Home, Self Care
--- NOTE | 2022-12-31 07:07 | PCM.PN.OB ---
Subjective Subjective No overnight complaints Objective Data Objective Data Vital Signs: Vital Signs Temp Pulse Resp BP Pulse Ox O2 Del Method 98.2 F 61 16 94/51 L 98 Room Air 12/31/22 04:56 12/31/22 04:58 12/31/22 04:56 12/31/22 04:58 12/31/22 04:56 12/31/22 04:56 Oxygen Delivery Method Room Air Weight: 179 lb 0.246 oz Body Mass Index (BMI) 29.7 Intake & Output: Intake and Output for Last 24 Hours 12/29/22 12/30/22 12/31/22 23:59 23:59 23:59 Intake Total 91.83 / 91.83 3320.74 / 3320.74 Output Total 1650 / 1650 Balance 91.83 / 91.83 1670.74 / 1670.74 Lab / Micro Data 12/31/22 05:02 Labs: Laboratory Results - last 24 hr 12/31/22 05:02: WBC 12.4 H, RBC 3.72 L, Hgb 11.6 L, Hct 33.7 L, MCV 90.6, MCH 31.2, MCHC 34.4, RDW Std Deviation 43.2, RDW Coeff of Matthew 13.2, Plt Count 145 L, MPV 10.9 Physical Exam Const alert, oriented x3, no apparent distress, average body habitus, healthy appearing and well nourished HEENT normocephalic and moist oral mucous membranes Eyes PERRL Neck full ROM Resp normal respiratory effort, no retractions and no use of accessory muscles GI GI Narrative: Soft, nontender, bandage clean dry and intact Extremity normal to inspection and full ROM Neuro moves all extremities and no focal motor deficits Psych mental status grossly normal, affect normal, speech normal and activity/motor behavior normal Assessment & Plan (1) delivery delivered: PLAN: Postop day 1 status post elective repeat section. Breast-feeding. Pain well controlled. 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 Patient scheduled to follow-up postoperatively with [facility], educated patient on monitor closure and timing patient states understanding
[2022-12-31 07:40] VITALS: BP 90/55; PULSE 73
[2022-12-31 07:52] VITALS: BP 90/55; PULSE 73; RESP 16; TEMP 36.6; O2SAT 97
[2022-12-31] MEDS: Senna/Docusate Sodium 1 Tablet PO (11:11)
[2022-12-31] MEDS: Ibuprofen 600 MG Tablet PO (11:45)
--- NOTE | 2023-01-05 11:02 | NURSING ---
follow up phone call done. Patient reports can't complaint, doing well baby eats well and sleeps well. Bleeding WNL. Very satisfied with her care, appreciated the staff, keep up the great work
== END 2022-12-31 13:50 | disposition home or self-care (01) | DRG 788 ==
PROVIDERS: Admitting Provider Student in an Organized Health Care Education/Training Program; Visit Provider Student in an Organized Health Care Education/Training Program
DX: O34.219 Maternal care for unspecified type scar from previous cesarean delivery (principal); Z37.0 Single live birth; Z3A.39 39 weeks gestation of pregnancy
CPT/HCPCS: 59025; 59050; 85025; 85027; 86780; 86850; 86900; 86901; 99221; J7120; A4216; G0378